=== PATIENT | female | born 1945 | race Caucasian/White ===

== ENCOUNTER 2017-05-10 19:25 | Emergency (ER) | payer OTHER ==
[~2017-05-10] VITALS: Ht 168.9 cm; Wt 86.5 kg
[~2017-05-10 19:25] MED LIST: PAMELOR10 MG PO; TENORMIN25 MG PO; ZOLOFT25 MG PO
[2017-05-10 20:35] LABS: ADD MIUA? YES; BILIRUBIN NEGATIVE; BLOOD NEGATIVE; COLOR YELLOW ((YELLOW)); GLUCOSE (STRIP) NEGATIVE; KETONES NEGATIVE; LEUKOCYTES MODERATE; NITRITE NEGATIVE; PROTEIN (STRIP) 30; SPECIFIC GRAVITY 1.024 (1.000-1.030)
[2017-05-10 20:40] LABS: BACTERIA NONE SEEN /HPF; EPITHELIAL CELLS 1+ /HPF; MUCUS TRACE /LPF; RED BLOOD CELLS 0-5 /HPF (0-5); UCUL ADDED? NO; WHITE BLOOD CELLS 0-5 /HPF (0-5)
[2017-05-10 20:44] LABS: HEMATOCRIT 35.6 % (36.0-46.0); MCH 27.6 PG (29.0-34.0); MCHC 32.6 G/DL (30.0-36.0); MCV 84.8 FL (83-99); MEAN PLAT.VOLUME 9.7 uM^3 (9.5-12.4); PLATELET COUNT 294 K/uL (156-360); RBC DIS.WIDTH-CV 14.1 % (11.8-14.6); RBC DIS.WIDTH-SD 43.3 % (39-53); WHITE BLOOD COUNT 8.9 K/uL (4.1-10.2)
[2017-05-10 20:53] LABS: CHLORIDE 105 mEq/L (99-109); POTASSIUM 3.7 mEq/L (3.7-5.4); SODIUM 137 mEq/L (136-147)
[2017-05-10 20:56] LABS: GLUCOSE 122 mg/dL (70-99)
[2017-05-10 20:57] LABS: ANION GAP 7 MEQ/L (2-14)
[2017-05-10 20:58] LABS: TOTAL BILIRUBIN 0.5 mg/dL (0.0-1.0)
[2017-05-10 20:59] LABS: ALKALINE PHOSPHATASE 93 IU/L (3-129); GFR ESTIMATE (CALCULATED) > 59 mL/min/
[2017-05-10 21:00] LABS: UREA NITROGEN (BUN) 13 mg/dL (9-23)
[2017-05-10] MEDS ORDERED: ZOFRAN ODT4 MG PO (23:01)
[2017-05-10] MEDS ORDERED: NORCO 5/3251 TABLET PO (23:01)
[2017-05-10 23:29] VITALS: BP 107/76
== END 2017-05-10 23:42 | disposition home or self-care (01) ==
LOC: EME 19:25
PROVIDERS: Physician Assistant
DX: N39.0 Urinary tract infection, site not specified (principal); K59.00 Constipation, unspecified; F32.9 Major depressive disorder, single episode, unspecified; F41.9 Anxiety disorder, unspecified
CPT/HCPCS: 74176; 80053; 81003; 85027; 99281; 99285; J2270; J2405; J7030